=== PATIENT | male | born 1965 ===

== ENCOUNTER 2023-02-22 09:59 | Emergency (ER) | payer SELFPAY ==
[2023-02-22] MEDS ORDERED: Sodium Chloride 0.9% 10 ML Syringe FLUSH PRN ×2 (10:38→11:36)
[2023-02-22 10:53] LABS: BASOPHILS PERCENT AUTO 0.1 % (0.0-1.0); EOSINOPHILS ABSOLUTE AUTO 0.1 K/mm3 (0.0-0.4); EOSINOPHILS PERCENT AUTO 0.8 % (0.0-6.0); HEMATOCRIT 40.9 % (42.0-52.0); HEMOGLOBIN 14.3 gm/dl (14.0-18.0); IMMATURE GRAN ABSOLUTE AUTO 0.02 K/mm3 (0.00-0.05); IMMATURE GRAN PERCENT AUTO 0.3 % (0.0-0.4); LYMPHOCYTES ABSOLUTE AUTO 1.2 K/mm3 (1.0-4.8); LYMPHOCYTES PERCENT AUTO 16.5 % (24.0-44.0); MEAN CORPUSCULAR VOLUME 91.5 fl (83.0-99.0); MEAN PLATELET VOLUME 8.8 fl (9.4-12.4); MONOCYTES ABSOLUTE AUTO 0.7 K/mm3 (0.0-0.8); MONOCYTES PERCENT AUTO 9.5 % (0.0-8.0); NEUTROPHILS ABSOLUTE AUTO 5.3 K/mm3 (1.8-7.7); NEUTROPHILS PERCENT AUTO 72.8 % (41.0-71.0); PLATELET COUNT,PLT 233 K/mm3 (150-400); RED BLOOD CELL COUNT 4.47 M/mm3 (4.52-5.90); WHITE BLOOD CELL COUNT,WBC 7.27 K/mm3 (3.9-11.3)
[2023-02-22 11:20] LABS: A/G RATIO 0.9 (1-2); ALBUMIN 2.9 g/dl (3.4-5.0); ANION GAP 14.8 (5-15); BILIRUBIN TOTAL 0.7 mg/dL (0.2-1.0); BUN/CREATININE RATIO 14.4 (14-18); CALCIUM 8.5 mg/dL (8.5-10.1); CREATININE 0.9 mg/dL (0.7-1.3); EST CRCL DRUG DOSING (CG) 100.59 mL/min; MAGNESIUM 1.7 mg/dL (1.8-2.4); POTASSIUM,K 3.8 mEq/L (3.5-5.1); PROTEIN TOTAL,TP 6.3 g/dl (6.4-8.2)
[2023-02-22] MEDS ORDERED: Iopamidol 755 Mg/ML 100 ML Bottle IVPUSH ONE (11:36)
[2023-02-22] MEDS ORDERED: Sodium Chloride 0.9% 100 ML IV SCH (11:45)
[2023-02-22] MEDS ORDERED: Heparin Sodium 5,000 Units/ML Vial IVPUSH ONE (11:59)
[2023-02-22] MEDS ORDERED: Heparin Sodium/D5W 25,000 UNITS/500 ML BAG IV SCH (12:00)
[2023-02-22 12:23] LABS: INR 1.02; PROTHROMBIN TIME 10.9 SECONDS (9.7-12.0)
[2023-02-22 12:25] LABS: PTT,PARTIAL THROMBOPLSTIN TIME 27.3 SECONDS (21.7-31.4)
[2023-02-22] MEDS ORDERED: Insulin Lispro 100 Unit/ML 3 ML KwikPen SUBCUT ONE (13:41)
[2023-02-22 20:32] VITALS: BP 121/76; PULSE 79
== END 2023-02-22 14:28 ==
LOC: JD.ED 09:59
DX: I82.401 Acute embolism and thrombosis of unspecified deep veins of right lower extremity (principal); I26.99 Other pulmonary embolism without acute cor pulmonale; E11.9 Type 2 diabetes mellitus without complications; Z79.82 Long term (current) use of aspirin
CPT/HCPCS: 36415; 71275; 71275-26; 80053; 83036; 83735; 84484; 85025; 85379; 85610; 85730; 93010; 93971-26-RT; 93971-RT; 96365; 99285; 99285-25; J1644; J1815; J3490; Q9967